=== PATIENT | male | born 1940 | race Caucasian/White ===

== ENCOUNTER → 2018-01-28 08:56 | Outpatient (CLI) | payer MEDICARE, BC, SELFPAY ==
--- NOTE | 2018-01-28 09:01 | DI.RAD.S_ITS ---
PROCEDURE: XR CHEST 2V INDICATIONS: cough TECHNIQUE: 2 views of the chest were acquired. COMPARISON: [facility], , CHEST 2 VIEW, 11/30/2014, 14:22. FINDINGS: Surgical changes and devices: None. Lungs and pleura: No pleural effusions or pneumothorax. Lungs are clear. Mediastinum: Mediastinal contours are normal. Heart size is normal. Unchanged appearance of right hemidiaphragm elevation. Bones and chest wall: No suspicious bony abnormalities. Soft tissues appear unremarkable. IMPRESSION: No acute pulmonary process. Dictated by: Mercedes Munoz M.D. on 01/28/2018 at 11:26 Approved by: Mercedes Munoz M.D. on 01/28/2018 at 11:28
== END ==
PROVIDERS: Family Provider Internal Medicine Critical Care Medicine; PCP Internal Medicine; Visit Provider Internal Medicine
DX: R05 Cough (principal)
CPT/HCPCS: 71046

== ENCOUNTER → 2019-01-04 06:17 | Outpatient (CLI) | payer MEDICARE, BC, SELFPAY ==
--- NOTE | 2019-01-04 | DI.MRI.S_ITS ---
PROCEDURE: MR SHOULDER RT WO CON INDICATIONS: rotator cuff tear or rupture of right shoulder TECHNIQUE: Noncontrast oblique coronal T2 fast spin echo with fat saturation, oblique sagittal T1 spin echo and T2 fast spin echo with fat saturation, axial T1 spin echo and T2 fast spin echo with fat saturation through the shoulder. COMPARISON: [facility], , UPPER EXT.JOINT WITHOUT CONTRA, 02/13/2010, 16:45. FINDINGS: Image quality: Excellent. Rotator cuff: Severe supraspinatus tendinopathy and thickening with intersubstance signal change. There is also slitlike full-thickness tear at the footprint for example image 10 series 8 measuring 1-2 mm in the longitudinal/transverse dimension as seen on coronal image 10 series 8. Infraspinatus tendinopathy also noted with low-grade bursal and articular surface fraying, and marked thickening. Teres minor appears intact. Subscapularis tendon demonstrates partial thickness articular and bursal side tear although no definite full thickness or retracted defect. There is atrophy of the supraspinatus muscle and diffuse fatty infiltration of the rotator cuff musculature. Bones and bursae: No bone marrow contusions or fractures. Severe hypertrophic acromioclavicular joint degeneration. [id number] glenohumeral joint degeneration. The acromion demonstrates conventional anatomy, without an os acromiale. Moderate subacromial/subdeltoid bursitis Capsule and soft tissues: Ill-defined circumferential labral fraying is noted, chronic/degenerative. Medial subluxation of the long head of the biceps tendon is noted. Near-complete obliteration of the subcoracoid fat. The coracohumeral ligament appears grossly intact. IMPRESSION: Severe supraspinatus tendinopathy with small, full-thickness slitlike tear at the footprint, which appears progressed since 02/13/10. Atrophy of the supraspinatus muscle has developed since prior study. Progressive infraspinatus tendinopathy with low-grade bursal and articular surface fraying. Progressive subscapularis tendinopathy/interstitial tearing and partial thickness articular and bursal sided tear with associated medial subluxation long head biceps tendon, which has developed since the prior study. Severe degenerative joint disease. Moderate subacromial/subdeltoid bursitis. Poorly-defined circumferential labral tear likely chronic/degenerative. Dictated by: Iron Paris M.D. on 01/04/2019 at 10:32 Approved by: Iron Paris M.D. on 01/04/2019 at 11:20
== END ==
PROVIDERS: Family Provider Internal Medicine Critical Care Medicine; PCP Student in an Organized Health Care Education/Training Program; Visit Provider Orthopaedic Surgery
DX: M75.111 Incomplete rotator cuff tear or rupture of right shoulder, not specified as traumatic (principal); M19.011 Primary osteoarthritis, right shoulder; M75.51 Bursitis of right shoulder; S43.491A Other sprain of right shoulder joint, initial encounter
CPT/HCPCS: 73221

== ENCOUNTER → 2019-01-20 13:50 | Outpatient (CLI) | payer MEDICARE, BC, SELFPAY ==
[2019-01-20 15:42] LABS: Alanine Aminotransferase 39 IU/L (21-72); Albumin 4.3 g/dL (3.5-5.0); Albumin Globulin Ratio 1.6 (1.0-2.8); Alkaline Phosphatase 62 U/L (38-126); Aspartate Aminotransferase 31 IU/L (17-59); Bilirubin Total 0.5 mg/dL (0.2-1.3); Blood Urea Nitrogen 16 mg/dL (9-20); Calcium 9.2 mg/dL (8.4-10.2); Carbon Dioxide 28 mmol/L (22-32); Chloride 103 mmol/L (98-107); Estimated Glomerular Filt Rate > 60.0 mL/min (>60); Globulin 2.7 g/dL (1.7-4.1); Glucose 90 mg/dL (80-110); HEMOLYSIS < 15 (0-50); Potassium 4.4 mmol/L (3.4-5.1); Sodium 140 mmol/L (137-145)
== END ==
PROVIDERS: PCP Student in an Organized Health Care Education/Training Program; Visit Provider Student in an Organized Health Care Education/Training Program
DX: I10 Essential (primary) hypertension (principal); K21.9 Gastro-esophageal reflux disease without esophagitis
CPT/HCPCS: 36415; 80053

== ENCOUNTER 2019-02-09 08:08 | Emergency (ER) | payer MEDICARE, BC, SELFPAY ==
[2019-02-09 08:10] VITALS: BP 156/77; PULSE 57; RESP 16; TEMP 36.6; O2SAT 99; BMI 27.1
[2019-02-09 08:30] VITALS: BP 118/74; PULSE 55; RESP 13; O2SAT 98
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
[2019-02-09 09:14] VITALS: BP 122/65; PULSE 51; RESP 18; O2SAT 98
[2019-02-09 09:44] VITALS: BP 119/71; PULSE 51; RESP 16
== END 2019-02-09 09:46 | disposition home or self-care (01) ==
PROVIDERS: Emergency Provider Emergency Medicine; PCP Student in an Organized Health Care Education/Training Program
DX: S20.212A Contusion of left front wall of thorax, initial encounter (principal); Y92.814 Boat as the place of occurrence of the external cause; R03.0 Elevated blood-pressure reading, without diagnosis of hypertension; W19.XXXA Unspecified fall, initial encounter; Z79.01 Long term (current) use of anticoagulants; Z87.898 Personal history of other specified conditions
CPT/HCPCS: 71101; 93005; 99283; 99284

== ENCOUNTER 2019-03-11 10:53 | Emergency (ER) | payer MEDICARE, BC, SELFPAY ==
[2019-03-11 11:10] VITALS: BP 152/80; PULSE 87; RESP 20; TEMP 36.6; O2SAT 100; BMI 27.2
--- NOTE | 2019-03-11 11:20 | DI.RAD.S_ITS ---
PROCEDURE: XR ABDOMEN MIN 2V INDICATIONS: abd pain TECHNIQUE: 2 views of the abdomen were acquired. COMPARISON: None. FINDINGS: Surgical changes and devices: Right lower quadrant postoperative clips are seen. Bowel: No pneumoperitoneum. The bowel gas pattern is normal. A moderate amount of stool can be seen within the colon. Soft tissues: No masses; visualized solid organ contours appear normal in size. No suspicious abdominal calcifications. Bones: No suspicious bony abnormalities. Age-appropriate bony degenerative changes are seen. Mild dextroconvex scoliotic curvature is seen. IMPRESSION: There is a moderate amount of stool seen within the colon. Please correlate with an underlying history of constipation. Presumed prior appendectomy. Dictated by: Medardo Massey M.D. on 03/11/2019 at 10:34 Approved by: Medardo Massey M.D. on 03/11/2019 at 10:34
--- NOTE | 2019-03-11 11:22 | ED.ABDPAIN ---
HPI - Abdominal Pain <CARLENE Wise - Last Filed: 03/11/19 12:35> General Chief Complaint: Abdominal Pain Stated Complaint: bowel incont. today Time Seen by Provider: 03/11/19 11:08 Source: patient and family Mode of arrival: ambulatory History of Present Illness HPI narrative: The patient is a 78-year-old male former smoker with history high cholesterol who presents with his for chief complaint of an episode of bowel incontinence. He states that he has not had a bowel movement for several days, had a small hard bowel movement at 5:15 a.m. this morning. Then he kept pushing and attempting to have a bowel movement until approximately 715. He states he took 2 Dulcolax bisacodyl pills when he was having his episode of constipation this morning. He states even started leaking bowels. He denies any back pain, nausea vomiting diarrhea abdominal pain. He denies any fever, falls or spinal trauma. He denies any incontinence of bladder. Related Data Home Medications Medication Instructions Recorded Confirmed aspirin 81 mg tablet,delayed 81 mg PO DAILY 04/04/18 02/22/19 release metoprolol succinate 100 mg mg PO .qd each 04/04/18 02/22/19 capsule sprinkle, ext. release 24 hr multivitamin PO 04/04/18 02/22/19 oxybutynin chloride 5 mg tablet 5 mg PO .QD tab 04/04/18 02/22/19 tamsulosin 0.4 mg capsule 0.4 mg PO DAILY 04/04/18 02/22/19 vitamin E acetate PO 04/04/18 02/22/19 ibuprofen 800 mg tablet 800 mg PO TID 01/20/19 02/22/19 Previous Rx's Medication Instructions Recorded ranitidine HCl 300 mg capsule 300 mg PO DAILY #90 cap 01/20/19 atorvastatin 40 mg tablet 40 mg PO DAILY #90 tab 01/27/19 clopidogrel 75 mg tablet 75 mg PO DAILY #90 tab 03/07/19 isosorbide mononitrate 30 mg 30 mg PO DAILY #90 tab 03/09/19 tablet,extended release 24 hr Allergies Allergy/AdvReac Type Severity Reaction Status Date / Time No Known Drug Allergies Allergy Verified 02/22/19 15:21 Review of Systems <CARLENE Wise - Last Filed: 03/11/19 12:35> Review of Systems Narrative: GENERAL: Denies chills, fatigue, malaise, fever, sweats. HEENT: Denies sinus pain, ear pain, sore throat, difficulty swallowing, dizziness. RESPIRATORY: Denies dyspnea, cough, wheezing, hemoptysis, sputum. CARDIOVASCULAR: Denies chest pain, palpitations, orthopnea, edema, GASTROINTESTINAL: See HPI : Denies dysuria, frequency, incontinence, hematuria, urinary retention. MUSCULOSKELETAL: denies weakness, joint pain, or bony pain SKIN: Denies rash, skin lesions, or other NEUROLOGIC: Denies weakness, headache, numbness, change in speech, confusion, seizures, incoordination. PSYCHIATRIC: No concerning psychosocial issues. 12 point review of systems is negative except for those stated above PFSH <CARLENE Wise - Last Filed: 03/11/19 12:35> Medical History Coronary artery disease (Acute) CTS (carpal tunnel syndrome) (Resolved 2008) Hearing loss (Chronic 1990) Surgical History Anesthesia (Resolved) History of carpal tunnel repair (Resolved 2008) Status post functional endoscopic sinus surgery (FESS) (Resolved 2010) Family History Mother Cancer Pancreatic cancer Sister Age: 89 Breast cancer Brother No problems noted. Brother No problems noted. Father Suicide Sister No problems noted. Social History Smoking Status: Former smoker Family History Mother Cancer Pancreatic cancer Sister Age: 89 Breast cancer Brother No problems noted. Brother No problems noted. Father Suicide Sister No problems noted. Social History Smoking Status: Former smoker Exam <CARLENE Wise - Last Filed: 03/11/19 12:35> Narrative Exam Narrative: GENERAL: Elderly male in no acute distress HEAD: Atraumatic. Normocephalic. No temporal or scalp tenderness. EYES: Pupils equal round and reactive. Extraocular motions intact. No scleral icterus. No injection or drainage. ENT: Nose without bleeding, purulent drainage or septal hematoma. Throat without erythema, tonsillar hypertrophy or exudate. Uvula midline. Airway patent. Hard of hearing CARDIOVASCULAR: Regular rate and rhythm without murmurs, gallops, or rubs. RESPIRATORY: Clear to auscultation. Breath sounds equal bilaterally. No wheezes, rales, or rhonchi. GASTROINTESTINAL: Abdomen soft, non-tender, nondistended. No hepato-splenomegaly, or palpable masses. No guarding. Active bowel sounds all 4 quadrants. EXTREMITIES: No clubbing, cyanosis, or edema. No joint tenderness, effusion, or edema noted. BACK: Nontender without deformity or crepitance. No flank tenderness. NEURO: AOx3. No gross cranial nerve deficit. Strength is equal upper and lower extremities bilaterally. Stable gait. SKIN: No rash or erythema on visible skin. rectal: Performed with Ashley LOVE at bedside. Tone and sensation intact. Initial Vital Signs Initial Vital Signs: Vital Signs Temperature 97.9 F 03/11/19 11:10 Pulse Rate 87 03/11/19 11:10 Respiratory Rate 20 03/11/19 11:10 Blood Pressure 152/80 H 03/11/19 11:10 Pulse Oximetry 100 03/11/19 11:10 <Jordy Whitaker DO - Last Filed: 03/11/19 12:47> Initial Vital Signs Initial Vital Signs: Vital Signs Temperature 97.9 F 03/11/19 11:10 Pulse Rate 87 03/11/19 11:10 Respiratory Rate 20 03/11/19 11:10 Blood Pressure 152/80 H 03/11/19 11:10 Pulse Oximetry 100 03/11/19 11:10 Course <CARLENE Wise - Last Filed: 03/11/19 12:35> Orders Ordered: ED Orders 03/11/19 11:20 XR abdomen min 2V Stat Vital Signs Vital signs: Vital Signs - 8 hr 03/11/19 11:10 03/11/19 12:19 Temperature 97.9 F Pulse Rate 87 66 Respiratory Rate 20 16 Blood Pressure 152/80 H Blood Pressure [Left Arm] 118/62 Pulse Oximetry 100 100 <Jordy Whitaker DO - Last Filed: 03/11/19 12:47> Orders Ordered: ED Orders 03/11/19 11:20 XR abdomen min 2V Stat Vital Signs Vital signs: Vital Signs - 8 hr 03/11/19 11:10 03/11/19 12:19 Temperature 97.9 F Pulse Rate 87 66 Respiratory Rate 20 16 Blood Pressure 152/80 H Blood Pressure [Left Arm] 118/62 Pulse Oximetry 100 100 MDM - Abdominal Pain <CARLENE Wise - Last Filed: 03/11/19 12:35> Imaging Data Abdominal x-ray: Radiologist's impression: Syed Grossman 78 M [address] [address] XRay Report Signed Patient: Syed Grossman [facility]#: [id number] : 1940cct:[id number] Age/Sex: 78 / MDate of Service: 03/11/19 Loc: ED Accession Number: [id number] Procedure: XR abdomen min 2V Ordering Provider: Lalita Little PROCEDURE: XR ABDOMEN MIN 2V INDICATIONS: abd pain TECHNIQUE: 2 views of the abdomen were acquired. COMPARISON: None. FINDINGS: Surgical changes and devices: Right lower quadrant postoperative clips are seen. Bowel: No pneumoperitoneum. The bowel gas pattern is normal. A moderate amount of stool can be seen within the colon. Soft tissues: No masses; visualized solid organ contours appear normal in size. No suspicious abdominal calcifications. Bones: No suspicious bony abnormalities. Age-appropriate bony degenerative changes are seen. Mild dextroconvex scoliotic curvature is seen. IMPRESSION: There is a moderate amount of stool seen within the colon. Please correlate with an underlying history of constipation. Presumed prior appendectomy. Dictated by: Medardo Massey M.D. on 03/11/2019 at 10:34 Approved by: Medardo Massey M.D. on 03/11/2019 at 10:34 [facility] Narrative Medical decision making narrative: The patient is a 78-year-old male who presents with a single episode of bowel incontinence after taking laxatives earlier today. He has no numbness, no incontinence of bowel, normal a rectal exam. I believe that his incontinence is likely related to his laxative use. However he still has strong evidence of constipation on his x-ray. He does not have an acute abdominal exam. He is afebrile, nontoxic appearing throughout his stay in the emergency department. I discussed at length methods to help constipation such as MiraLax etc. Discussed coming back to the ER for any acute concerns such as numbness, incontinence of bladder, incontinence of bowel not surrounding laxative use. Encourage PCP follow-up in the next few days. Patient have no questions or concerns upon discharge. Discharge Plan Departure Patient Disposition: Home Clinical Impression: Constipation Qualifiers: Constipation type: unspecified constipation type Qualified Code(s): K59.00 - Constipation, unspecified Instructions: Constipation (Alternative Therapy), DI for Constipation Activity Restrictions/Additional Instructions: I believe that the leaking stool that you had earlier today was related to your laxative use. Please monitor for numbness, incontinence of bowel not surrounding laxative use, incontinence of bladder. Please come back to the emergency department for any acute concerns. Please call your PCPs office and schedule an appointment for the next few days. The x-ray that we took showed lots of stool in your stomach, I suggest use of MiraLax, and other laxatives such as senna. Please be sure to stay hydrated, eat lots of fiber. Please come back to the emergency department for any acute concerns such as neurological deficit, chest pain shortness of breath etc Prescriptions: No Action atorvastatin 40 mg tablet 40 mg PO DAILY Qty: 90 RF: 1 clopidogrel 75 mg tablet 75 mg PO DAILY Qty: 90 RF: 3 isosorbide mononitrate 30 mg tablet extended release 24 hr 30 mg PO DAILY Qty: 90 RF: 1 aspirin [Adult Aspirin Regimen] 81 mg tablet,delayed release (DR/EC) 81 mg PO DAILY RF: 0 tamsulosin 0.4 mg capsule 0.4 mg PO DAILY RF: 0 oxybutynin chloride 5 mg tablet 5 mg PO .QD RF: 0 metoprolol succinate 100 mg cap,sprinkle,ER 24hr dose pack PO .qd RF: 0 multivitamin PO RF: 0 vitamin E acetate PO RF: 0 ranitidine HCl 300 mg capsule 300 mg PO DAILY Qty: 90 RF: 1 ibuprofen 800 mg tablet 800 mg PO TID RF: 0 Referrals: Jama Stratton MD [Primary Care Provider] - <Jordy Whitaker DO - Last Filed: 03/11/19 12:47> Sign Out Provider Sign Out Attestation: I was available for consultation during this patient's emergency department encounter
[2019-03-11 12:19] VITALS: BP 118/62; PULSE 66; RESP 16; O2SAT 100
== END 2019-03-11 12:52 | disposition home or self-care (01) ==
PROVIDERS: Emergency Provider Nurse Practitioner Family; PCP Student in an Organized Health Care Education/Training Program
DX: K59.00 Constipation, unspecified (principal)
CPT/HCPCS: 74019; 99282; 99283

== ENCOUNTER → 2021-03-19 08:03 | Outpatient (CLI) | payer MEDICARE, OTHER, SELFPAY ==
--- NOTE | 2021-03-20 08:49 | P.PCN_ITS ---
Cardiac Stress Test Report Referral & Results Date Patient Seen: 03/20/21 Time Patient Seen: 08:30 Requesting provider: Jama Stratton Indication: Angina Rest ECG: NSR Procedure Note: Today following both written and verbal informed consent the patient was exercised according to a standard Jose Juan protocol patient went for a total of 8 minutes 41 seconds achieving a maximum heart rate of 152 maximum systolic blood pressure of 230. This is approximately 10.1 METs. Exercise was terminated at this point because of fatigue. Patient was also given Cardiolite through a previously started Hep-Lock IV by the nuclear weapons custodian approximately 1 minute prior to the cessation of exercise. No signs or symptoms of angina. Presenting symptoms were largely resolved with pantoprazole started 2 weeks ago. Normal exercise capacity (FA I-20% on active scale). Mild ST deviations in multiple leads that resolved quickly with rest. Rare PVCs. Exaggerated hemodynamic response to exercise. Impression: Consistent with known atherosclerotic disease and stable angina. Perfusion imaging pending to look for more subtle findings Please note: Actual ECG tracings can be found in the PACS system.
--- NOTE | 2021-03-20 19:04 | DI.NM.S_ITS ---
DATE OF SERVICE: 03/19/2021 PROCEDURE PERFORMED: Exercise perfusion study. INDICATIONS: Angina pectoris with underlying coronary artery disease. RADIOPHARMACEUTICAL: 26.6 millicurie technetium-99m Myoview IV was injected at stress and 25.3 millicurie technetium-99m Myoview IV was injected at rest. CARDIAC STRESS: The patient underwent exercise perfusion study under the supervision of an attending staff. The patient walked on Jose Juan protocol for 8 minutes, 41 seconds, achieved 108 percent of target heart rate with a TONY -20 percent, 10.1 METs of workload. There was hypertensive blood pressure response. Baseline blood pressure 130/76 and peak blood pressure 230/84 mmHg. The patient felt fatigue. No anginal symptoms. Baseline electrocardiogram revealed sinus rhythm. During stress, there was about [address] depression in lead V4 to V6, which got quickly resolved during recovery. Rare premature ventricular contractions. No significant arrhythmias RAW DATA: There is increased subdiaphragmatic activity. GATED STUDY: Stress LV ejection fraction 83 percent without any obvious wall motion abnormalities. Resting end-diastolic volume 87 mL. TID ratio 0.86, which is within normal limits. Lung/heart ratio 0.35, which is within normal limits. MYOCARDIAL PERFUSION SCAN: Stress supine, resting supine and stress prone images were compared to each other. Stress supine and resting supine images revealed moderate-size, moderately decreased perfusion of base to mid inferior wall, which got completely resolved during stress prone images, suggestive of diaphragmatic tissue attenuation artifact. Prone images revealed normal myocardial perfusion. No reversible ischemia. CONCLUSION: This is a normal myocardial perfusion study with evidence of diaphragmatic tissue attenuation artifact, which got resolved during prone images. Excellent exercise capacity. The patient achieved 10.1 METs of workload. TONY -20 percent. Hypertensive blood pressure response.. The patient had a perfusion study in January,. At that time, the patient had a reversible perfusion defect in the left circumflex artery territory. In this study, there is no reversible ischemia. The stress prone images revealed normal myocardial perfusion. Grossman Preethidivya - DESEAN/elysia/julio doc#: [id number]/job#: [id number] dd: 03/20/2021 17:58:00 dt: 03/20/2021 18:47:00 DICTATING MD/COPIES TO: Jus Beltran MD COPIES MNE: MINE;
== END ==
PROVIDERS: PCP Student in an Organized Health Care Education/Training Program; Referring Provider Student in an Organized Health Care Education/Training Program; Visit Provider Student in an Organized Health Care Education/Training Program
DX: I25.118 Atherosclerotic heart disease of native coronary artery with other forms of angina pectoris
CPT/HCPCS: 78452; 87635; 93016; 93017; 93018; C9803; A9502

== ENCOUNTER → 2021-03-19 10:31 | Outpatient (CLI) | payer MEDICARE, OTHER, SELFPAY ==
[2021-03-19 13:37] LABS: COVID19 -Nasal RAPID Negative (Negative)
== END ==
PROVIDERS: PCP Student in an Organized Health Care Education/Training Program; Visit Provider Physician Assistant
DX: Z20.822 Contact with and (suspected) exposure to COVID-19 (principal)
CPT/HCPCS: 87635

== ENCOUNTER → 2022-01-26 16:50 | Outpatient (CLI) | payer MEDICARE, OTHER, SELFPAY ==
[2022-01-26 18:17] LABS: Influenza A - CEPHEID Flu A NEGATIVE (NEGATIVE); Influenza B - CEPHEID Flu B NEGATIVE (NEGATIVE)
[2022-01-26 18:56] LABS: COVID-19 CEPHEID PCR (VTM/NP) POSITIVE (Negative)
== END ==
PROVIDERS: PCP Student in an Organized Health Care Education/Training Program; Visit Provider Pediatrics
DX: R53.81 Other malaise (principal); U07.1 COVID-19
CPT/HCPCS: 0240U

== ENCOUNTER → 2023-01-08 08:58 | Outpatient (CLI) | payer MEDICARE, OTHER, SELFPAY ==
--- NOTE | 2023-01-08 09:24 | DI.RAD.S_ITS ---
PROCEDURE: XR FOOT RT MIN 3V INDICATIONS: R foot pain- questionable gout TECHNIQUE: 3 views of the foot were acquired. COMPARISON: None. FINDINGS: Bones: No fractures or dislocations. No suspicious bony lesions. Plantar and posterior calcaneal enthesophytes. Mild hallux valgus, with associated MTP joint space narrowing and osteophytosis, and bone callus formation. Soft tissues: No tibiotalar joint effusion. Achilles tendon appears normal. 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 No radiographic evidence of gout. Dictated by: Jose Galindo M.D. on 01/08/2023 at 11:53 Approved by: Jose Galindo M.D. on 01/08/2023 at 12:01
[2023-01-08 10:21] LABS: Appearance Urine UA CLEAR; Bilirubin Urine UA NEGATIVE (NEGATIVE); Color Urine UA YELLOW; Glucose Urine UA NEGATIVE (Negative); Ketones Urine UA NEGATIVE (NEGATIVE); Leukocyte Esterase Urine UA 1+ (NEGATIVE); Nitrite Urine UA NEGATIVE (Negative); Occult Blood Urine UA NEGATIVE (Negative); Protein Urine UA NEGATIVE (Negative); Urobilinogen Urine UA 0.2 E.U./dL (0.2); pH Urine UA 5.5 (4.5-8.0)
[2023-01-08 10:28] LABS: Bacteria Urine Occasional (0-1); Culture Indicated Urine Specimen Cultured; RBC Urine 0-1/HPF (0-5/HPF); Squamous Epithelial Cell Urine 0-1 /HPF (0-5/HPF); WBC Urine 1-5/HPF (0-5/HPF)
[2023-01-08 10:37] LABS: Add Manual Diff / Slide Review NO; Basophils Absolute Auto 0 /uL (0-100); Basophils Percent Auto 0.2 % (0-2); Eosinophils Absolute Auto 500 /uL (0-450); Hematocrit 39.3 % (41-53); Hemoglobin 13.6 g/dL (13.5-17.5); Lymphocytes Absolute Auto 2100 /uL (1100-4500); Lymphocytes Percent Auto 44.5 % (25-40); Mean Corpuscular HGB Conc 34.6 % (30-36); Mean Corpuscular Hemoglobin 32.4 PG (26-34); Mean Corpuscular Volume 93.6 fL (80-100); Monocytes Absolute Auto 500 /uL (0-900); Monocytes Percent Auto 10.6 % (3-14); Neutrophils Absolute Auto 1600 /uL (1500-7000); Neutrophils Percent Auto 34.7 % (50-75); Platelet Count 179 X10^3/uL (150-400); Red Cell Distribution Width 13.1 % (11.6-14.8); White Blood Cell Count 4.7 X10^3/uL (4.5-11.0)
[2023-01-08 11:22] LABS: Alanine Aminotransferase 42 IU/L (<50); Albumin 3.8 g/dL (3.5-5.0); Albumin Globulin Ratio 1.5 (1.0-2.8); Alkaline Phosphatase 55 U/L (38-126); Aspartate Aminotransferase 33 IU/L (17-59); BUN Creatinine Ratio 17.6 (6-22); Bilirubin Total 0.6 mg/dL (0.2-1.3); Blood Urea Nitrogen 16 mg/dL (9-20); Carbon Dioxide 29 mmol/L (22-32); Chloride 103 mmol/L (98-107); Cholesterol 121 mg/dL (140-199); Estimated Glomerular Filt Rate > 60 mL/min (>60); Globulin 2.5 g/dL (1.7-4.1); Glucose 96 mg/dL (80-110); HDL Cholesterol 47 mg/dL (40-60); HEMOLYSIS < 15 (0-50); LDL Cholesterol Calculated 57 mg/dL (<100); Potassium 4.5 mmol/L (3.4-5.1); Sodium 138 mmol/L (137-145); Total Protein 6.3 g/dL (6.3-8.2); Triglycerides 83 mg/dL (35-150); Uric Acid 3.8 mg/dL (3.5-8.5)
[2023-01-08 11:47] LABS: Prostate Specific Antigen Scrn 0.505 ng/mL (0.1-4.0)
[2023-01-08 11:49] LABS: TSH w/ Reflex to FT4 1.81 uIU/mL (0.47-4.68)
== END ==
PROVIDERS: PCP Pediatrics; Referring Provider Pediatrics; Visit Provider Pediatrics
DX: I10 Essential (primary) hypertension (principal); Z12.5 Encounter for screening for malignant neoplasm of prostate; M10.9 Gout, unspecified; N40.0 Benign prostatic hyperplasia without lower urinary tract symptoms; E78.2 Mixed hyperlipidemia; I25.10 Atherosclerotic heart disease of native coronary artery without angina pectoris; M79.671 Pain in right foot
CPT/HCPCS: 36415; 73630; 80053; 80061; 81001; 84443; 84550; 85025; 87086; G0103

== ENCOUNTER → 2024-03-03 12:00 | Outpatient (CLI) | payer MEDICARE, OTHER, SELFPAY ==
[2024-03-03 12:54] LABS: Appearance Urine UA CLEAR; Bilirubin Urine UA NEGATIVE (NEGATIVE); Color Urine UA YELLOW; Glucose Urine UA NEGATIVE (Negative); Ketones Urine UA NEGATIVE (NEGATIVE); Leukocyte Esterase Urine UA 2+ (NEGATIVE); Nitrite Urine UA NEGATIVE (Negative); Occult Blood Urine UA NEGATIVE (Negative); Protein Urine UA NEGATIVE (Negative); Specific Gravity Urine UA <=1.005 (1.000-1.035); Urobilinogen Urine UA 0.2 E.U./dL (0.2); pH Urine UA 5.5 (4.5-8.0)
[2024-03-03 12:55] LABS: Urine Volume 10mL (spun)
[2024-03-03 12:56] LABS: Bacteria Urine None Seen; RBC Urine None Seen (0-5/HPF); WBC Urine 10-30/HPF (0-5/HPF)
[2024-03-03 12:57] LABS: Culture Indicated Urine Specimen Cultured; Squamous Epithelial Cell Urine 1-5 /HPF (0-5/HPF)
[2024-03-03 13:04] LABS: Add Manual Diff / Slide Review NO; Basophils Absolute Auto 0 /uL (0-100); Basophils Percent Auto 0.3 % (0-2); Eosinophils Absolute Auto 300 /uL (0-450); Eosinophils Percent Auto 4.2 % (2-4); Hematocrit 38.3 % (41-53); Hemoglobin 13.3 g/dL (13.5-17.5); Lymphocytes Absolute Auto 1700 /uL (1100-4500); Lymphocytes Percent Auto 26.7 % (25-40); Mean Corpuscular HGB Conc 34.7 % (30-36); Mean Corpuscular Hemoglobin 32.7 PG (26-34); Monocytes Absolute Auto 500 /uL (0-900); Monocytes Percent Auto 8.4 % (3-14); Neutrophils Absolute Auto 3800 /uL (1500-7000); Neutrophils Percent Auto 60.4 % (50-75); Platelet Count 214 X10^3/uL (150-400); Red Blood Cell Count 4.07 X10^6/uL (4.5-5.9); Red Cell Distribution Width 13.5 % (11.6-14.8); White Blood Cell Count 6.3 X10^3/uL (4.5-11.0)
[2024-03-03 13:17] LABS: Alanine Aminotransferase 34 IU/L (<50); Albumin 4.2 g/dL (3.5-5.0); Albumin Globulin Ratio 1.6 (1.0-2.8); Alkaline Phosphatase 71 U/L (38-126); Aspartate Aminotransferase 35 IU/L (17-59); Bilirubin Total 0.8 mg/dL (0.2-1.3); Blood Urea Nitrogen 15 mg/dL (9-20); Calcium 9.2 mg/dL (8.4-10.2); Carbon Dioxide 22 mmol/L (22-32); Chloride 104 mmol/L (98-107); Cholesterol 151 mg/dL (140-199); Estimated Glomerular Filt Rate > 60 mL/min (>60); Globulin 2.6 g/dL (1.7-4.1); Glucose 99 mg/dL (80-110); HDL Cholesterol 58 mg/dL (40-60); HEMOLYSIS < 15 (0-50); LDL Cholesterol Calculated 71 mg/dL (<100); Potassium 4.2 mmol/L (3.4-5.1); Sodium 135 mmol/L (137-145); Total Protein 6.8 g/dL (6.3-8.2); Triglycerides 111 mg/dL (35-150)
[2024-03-03 14:02] LABS: Creatinine Urine Random 29.57 mg/dL
[2024-03-03 14:20] LABS: Microalbumin Urine Random < 0.6 mg/dL (0-1.6)
== END ==
PROVIDERS: PCP Family Medicine; Referring Provider Family Medicine; Visit Provider Family Medicine
DX: I10 Essential (primary) hypertension (principal); I25.10 Atherosclerotic heart disease of native coronary artery without angina pectoris; E78.2 Mixed hyperlipidemia; R35.0 Frequency of micturition; R39.15 Urgency of urination
CPT/HCPCS: 36415; 80053; 80061; 81001; 82043; 82570; 85025; 87077; 87086; 87186